=== PATIENT | female | born 1995 | race African-American/Black ===

== ENCOUNTER 2021-03-12 12:21 | Emergency (ER) | payer SELFPAY ==
[~2021-03-12] VITALS: Ht 165.1 cm; Wt 64.4 kg
--- NOTE | 2021-03-12 12:26 | NUR ---
[employer] officer x1 accompanying this patient from the field. Patient is AOx4, tearful, LEUNG, respiation:easy, c/o neck pains, +hard c-collar on, step-[email or web address].
--- NOTE | 2021-03-12 12:31 | NUR ---
Patient's stepmother came out of room 4 and said, "She just passed out." Patient was seen resting on the gurney with eyes closed & flickering eyelids. She is easily arousable with soft tap to arm. Reassurances given.
--- NOTE | 2021-03-12 12:34 | NUR ---
Patient is intermittently crying & saying, "I want my dad." Comfort and safety measures maintained. Reassurances given, patient was placed on on continuous sPo2 & BP monitor, pending MD evaluation.
--- NOTE | 2021-03-12 12:36 | NUR ---
Room's 4 thermostat was on coolest setting. Additional hepa-filter fan on maximum air maintained for more cool air per family's request. Comfort and safety measures maintained.
--- NOTE | 2021-03-12 13:01 | NUR ---
Patient's father is [email or web address].
--- NOTE | 2021-03-12 13:27 | NUR ---
MD@bedside, medical screening exam in progress
[2021-03-12] MEDS ORDERED: IV NORMAL SALINE 1000 ML BAG IV ONE (13:45)
[2021-03-12] MEDS ORDERED: ONDANSETRON 4 MG/2 ML VIAL IV ONE (13:45)
[2021-03-12] MEDS ORDERED: MORPHINE SULFATE 2 MG/1 ML DISP.SYRIN IV ONE (13:45)
[2021-03-12] MEDS ORDERED: MORPHINE SULFATE 4 MG/1 ML DISP.SYRIN ONE ×2 (13:58→16:03)
[2021-03-12] MEDS ORDERED: ONDANSETRON 4 MG/2 ML VIAL ONE (13:59)
[2021-03-12 14:09] LABS: BASOPHILS % (AUTO) 0.4 % (0.0-2.0); EOSINOPHILS % (AUTO) 0.3 % (0.0-7.0); HEMATOCRIT 40.9 % (31.2-41.9); HEMOGLOBIN 13.6 g/dL (10.9-14.3); LYMPHOCYTES # (AUTO) 1.3 K/uL (20.0-40.0); LYMPHOCYTES % (AUTO) 27.1 % (20.5-51.5); MEAN CORPUSCULAR HEMOGLOBIN 30.9 uug (24.7-32.8); MEAN CORPUSCULAR HGB CONC 33 g/dL (32.3-35.6); MEAN CORPUSCULAR VOLUME 92.7 fL (75.5-95.3); MONOCYTES # (AUTO) 0.3 K/uL (2.0-10.0); NEUTROPHILS # (AUTO) 3.3 K/uL (1.8-8.9); NEUTROPHILS % (AUTO) 66.2 % (38.5-71.5); PLATELET COUNT (AUTO) 336 K/uL (179-408); RED BLOOD CELL COUNT(AUTO) 4.42 MIL/uL (3.63-4.92)
[2021-03-12 14:20] LABS: CREATININE 0.7 mg/dL (0.6-1.3); POTASSIUM 4.2 mmol/L (3.5-5.1)
[2021-03-12 14:26] LABS: BILIRUBIN,DIRECT 0.1 mg/dL (0.0-0.2); BILIRUBIN,TOTAL 0.4 mg/dL (0.2-1.0); TOTAL PROTEIN, SERUM 7.7 g/dL (6.4-8.2)
[2021-03-12] MEDS ORDERED: IV NORMAL SALINE 250 ML IV ONE (14:37)
[2021-03-12] MEDS ORDERED: CELLULOSE,OXIDIZED 2x3 MC ONE (14:37)
[2021-03-12] MEDS ORDERED: IOHEXOL 300MG/ML 100 ML INFUS..BTL ONE (14:37)
[2021-03-12] MEDS ORDERED: SWABABLE VALVE TRANSFER SET EA MC ONE (14:38)
--- NOTE | 2021-03-12 14:51 | NUR ---
Patient's father removed all the jewelry for the scans. Patient is signing the consent for IV contrast administration for CT scan.
[2021-03-12] MEDS ORDERED: MORPHINE SULFATE 4 MG/1 ML DISP.SYRIN IV ONE (16:00)
--- NOTE | 2021-03-12 16:21 | NUR ---
Patient is resting comfortably on gurney with eyes closed, pending results and disposition
[2021-03-12] MEDS ORDERED: IBUP-1957 PO (16:50)
[2021-03-12] MEDS ORDERED: ONDA4TAB5 PO (16:50)
[2021-03-12] MEDS ORDERED: HYDR-3972 PO (16:50)
--- NOTE | 2021-03-12 16:54 | NUR ---
Patient is walking with slow steady gait, calm, pending discharge papers@this time.
--- NOTE | 2021-03-12 17:12 | NUR ---
IV removed. Catheter intact and site benign. Pressure and 4x4 gauze applied to site. No bleeding noted. Patient discharged to home in stable condition. Written and verbal after care instructions given to patient and family. Patient and family verbalized understanding & compliance of instructions. Stressed follow up with primary doctor or return to ER for worsening s/s.
== END 2021-03-12 17:15 | disposition home or self-care (01) ==
LOC: ER 12:25
DX: S06.0X0A Concussion without loss of consciousness, initial encounter (principal); S16.1XXA Strain of muscle, fascia and tendon at neck level, initial encounter; S39.012A Strain of muscle, fascia and tendon of lower back, initial encounter; V49.40XA Driver injured in collision with unspecified motor vehicles in traffic accident, initial encounter; Y93.89 Activity, other specified; Y92.411 Interstate highway as the place of occurrence of the external cause; S50.11XA Contusion of right forearm, initial encounter; Z97.5 Presence of (intrauterine) contraceptive device; R20.0 Anesthesia of skin; S20.212A Contusion of left front wall of thorax, initial encounter; J45.909 Unspecified asthma, uncomplicated; Z88.2 Allergy status to sulfonamides; Z91.013 Allergy to seafood
CPT/HCPCS: 36415; 70450; 71260; 72125; 73090; 74177; 80048; 80076; 84484; 84702; 85025; 96361; 96374; 96375; 96376; 99285; J2270 ×2; J2405; Q9967; 70030-TC; A4663; J7030; J7050